=== PATIENT | male | born 1975 ===

== ENCOUNTER → 2020-03-04 08:56 | Outpatient (CLI) | payer OTHER, SELFPAY ==
[2020-03-04 11:05] LABS: COVID19 -Nasal RAPID Negative (Negative)
== END ==
PROVIDERS: Visit Provider Family Medicine Sleep Medicine
DX: Z01.812 Encounter for preprocedural laboratory examination (principal); Z20.822 Contact with and (suspected) exposure to COVID-19
CPT/HCPCS: 87635; C9803

== ENCOUNTER 2023-05-03 11:27 | Emergency (ER) | payer OTHER, MEDICAID, SELFPAY ==
[2023-05-03] VITALS (15 sets, daily range): BP systolic 127–154; BP diastolic 71–84; PULSE 54–79; RESP 16–40; TEMP 35.8; O2SAT 94–99; BMI 24.3
[2023-05-03 12:01] LABS: Add Manual Diff / Slide Review NO; Basophils Absolute Auto 100 /uL (0-100); Basophils Percent Auto 1.1 % (0-2); Eosinophils Absolute Auto 300 /uL (0-450); Eosinophils Percent Auto 3.3 % (2-4); Hematocrit 29.5 % (41-53); Hemoglobin 8.9 g/dL (13.5-17.5); Lymphocytes Absolute Auto 1700 /uL (1100-4500); Lymphocytes Percent Auto 20.6 % (25-40); Mean Corpuscular HGB Conc 30.1 % (30-36); Mean Corpuscular Hemoglobin 19.7 PG (26-34); Mean Corpuscular Volume 65.5 fL (80-100); Monocytes Absolute Auto 1000 /uL (0-900); Neutrophils Absolute Auto 5100 /uL (1500-7000); Platelet Count 251 X10^3/uL (150-400); Red Blood Cell Count 4.51 X10^6/uL (4.5-5.9); White Blood Cell Count 8.1 X10^3/uL (4.5-11.0)
[2023-05-03 12:03] LABS: Acetaminophen < 10 ug/mL (10-30); Alanine Aminotransferase 24 IU/L (<50); Albumin 4.1 g/dL (3.5-5.0); Albumin Globulin Ratio 1.2 (1.0-2.8); Alkaline Phosphatase 114 U/L (38-126); Aspartate Aminotransferase 41 IU/L (17-59); BUN Creatinine Ratio 20.3 (6-22); Bilirubin Total 0.4 mg/dL (0.2-1.3); Blood Urea Nitrogen 13 mg/dL (9-20); Calcium 8.5 mg/dL (8.4-10.2); Carbon Dioxide 23 mmol/L (22-32); Chloride 110 mmol/L (98-107); Estimated Glomerular Filt Rate > 60 mL/min (>60); Ethanol (ETOH) < 10 mg/dL; Globulin 3.4 g/dL (1.7-4.1); Glucose 142 mg/dL (70-100); HEMOLYSIS < 15 (0-50); Potassium 4.1 mmol/L (3.4-5.1); Salicylate < 1.0 mg/dL (<20); Sodium 142 mmol/L (137-145); Total Protein 7.5 g/dL (6.3-8.2)
[2023-05-03 12:17] LABS: Microcytosis 2+
[2023-05-03 12:21] LABS: Ovalocytes 2+
[2023-05-03 12:22] LABS: Schistocytes 1+
[2023-05-03 12:46] LABS: TSH w/ Reflex to FT4 0.74 uIU/mL (0.47-4.68)
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
[2023-05-03] MEDS: SODIUM CHLORIDE 0.9% 1,000 ML 1000 ML IV (13:28)
[2023-05-03 14:51] LABS: Ur Creatinine Normal (Normal); Ur Specific Gravity Normal (Normal); Urine pH Normal (Normal)
[2023-05-03 14:53] LABS: UR Morphine/Opiate cutoff 300 Negative (Negative); Urine Amphetamines Positive (Negative); Urine Barbiturates Negative (Negative); Urine Benzodiazepines Negative (Negative); Urine Cocaine Negative (Negative); Urine MDMA Positive (Negative); Urine Methadone Positive (Negative); Urine Methamphetamines Positive (Negative); Urine Oxycodone Negative (Negative); Urine Phencyclidine Negative (Negative); Urine Tetrahydrocannabinol Negative (Negative); Urine Tricyclic Antidepressant Negative (Negative)
--- NOTE | 2023-05-03 15:00 | CM.SWNOTE ---
ED ICER MACHINE OPERATOR Note Patient is 47 y/o male who presents to ED via EMS from [facility] due to concern for patient's uncontrolled movements. It is reported in triage per [facility] staff that patient may have taken more Wellbutrin than prescribed, patient endorses recent use of Methamphetamine. Patient's PCP is Dr. Marco Gallagher, patient has Medicaid and [employer] insurance. This is patient's first presentation to this hospital, patient endorses hx of Diabetes and substance use. ferryboat helper enter room to meet with patient, patient presents as A/Ox3, patient does not endorse why he presented he came to the hospital and states I needed to go to the bathroom. Patient endorses he resides with his mother in [place], patient states he does not want to worry her that he is here. Patient endorses he goes to [facility] every day to dose for Methadone. Patient endorses hx of Methamphetamine use and Fentanyl use. Patient endorses he used Fentynal on Wednesday and used Methamphetamine yesterday. Patient denies any hx of NA or other outpatient [facility] services. Patient's toxicology screen is positive for Amphetamines, Methamphetamine, Methadone and MDMA. Patient endorses that he rode his bike to [facility] and will need transport back to [facility] upon d/c. ICER MACHINE OPERATOR offers a [employer] transit day bus pass and patient endorses agreement and understanding. Patient states that he uses [employer] transit regularly. ICER MACHINE OPERATOR offers resources to patient and patient declines, patient denies any further questions for ferryboat helper Plan: patient to d/c to home upon medical clearance. ICER MACHINE OPERATOR to provide patient with [employer] transit day bus pass. Patient to f/u with [facility] daily. Unique Wolfe, DIRECTOR STARS
--- NOTE | 2023-05-03 15:38 | PC.NURSE ---
Pt lethargic, yawning. States he has a bus pass and can get to the nearest station. Pt changing into street clothes.
== END 2023-05-03 15:41 | disposition home or self-care (01) ==
PROVIDERS: Emergency Provider Emergency Medicine; PCP Family Medicine
DX: F15.10 Other stimulant abuse, uncomplicated (principal); R41.82 Altered mental status, unspecified
CPT/HCPCS: 80053; 80305; 80320; 80329; 81003; 84443; 85025; 93005; 96360; 99283; 99284; G0480